=== PATIENT | female | born 1970 | race American Indian/Alaskan Native ===

== ENCOUNTER 2019-01-11 09:18 | Day surgery (SDC) | payer OTHER ==
[2018-12-30 11:41] VITALS: BMI 30.2
[2019-01-11] MEDS ORDERED: ceFAZolin 1 gm in NS 2 GM/200 ML BAG IVPB ONE (10:48)
[2019-01-11] MEDS ORDERED: Lidocaine/Epinephrine 1% 1:100000 10 ML IJ ONE (10:48)
[2019-01-11] MEDS ORDERED: Bupivacaine 0.25% 20 ML INJ IJ ONE (10:48)
[2019-01-11] MEDS ORDERED: Propofol 10 mg/ml Inj (20 ML) ONE (11:55)
[2019-01-11] MEDS ORDERED: Midazolam 2 MG/2 ML VIAL ONE (11:55)
[2019-01-11] MEDS: Bupivacaine Liposomal Inj 20 ml INFIL ONE ×2 (12:19→13:05)
[2019-01-11] MEDS: Sodium Chloride 0.9% 40 ML IV ONE ×2 (12:28→13:05)
[2019-01-11] MEDS ORDERED: Neostigmine 1:1000 (1 mg/ml) Inj ONE (13:06)
[2019-01-11] MEDS ORDERED: Dexamethasone 4 mg/1 ml IVP PRN (13:29)
[2019-01-11] MEDS ORDERED: HYDROmorphone 0.5 mg/0.5 ml ISec IVP PRN (13:29)
[2019-01-11] MEDS ORDERED: Lactated Ringer's 1,000 ML IV SCH (13:30)
--- NOTE | 2019-01-11 13:45 | PCM.SURG1 ---
Surgeon's Initial Post Op Note - Surgeon's Notes Surgeon: MD Kenia Tipple Tender: Vickie PGY3. [facility] Director Pre-Operative Diagnosis: Gallbladder polyp Operative Findings: Gallbladder Post-Operative Diagnosis: Gallbladder polyp Operation Performed: Laparoscopic assisted robotic cholecystectomy, lysis of adhesions, TAP block Specimen/Specimens Removed: Gallbladder Estimated Blood Loss: EBL {In ML}: 5 Date of Surgery/Procedure: 01/11/19 Time of Surgery/Procedure: 12:00
[2019-01-11 14:12] VITALS: TEMP 98
[2019-01-11 15:32] VITALS: O2SAT 98
[2019-01-11 16:03] VITALS: PULSE 84; RESP 17
[2019-01-11 16:09] VITALS: BP 135/67
--- NOTE | 2019-01-12 06:53 | OP ---
PROCEDURE DATE: 01/11/2019 PREOPERATIVE DIAGNOSES: 1. Gallbladder polyp. 2. Abdominal pain. POSTOPERATIVE DIAGNOSIS: . PROCEDURES DONE: 1. Robotic cholecystectomy. 2. Laparoscopic bilateral TAP block placement. SURGEON: Marvin Aquino MD ASSISTANTS: DIRK Oshea and Bebeto Johnston DO TYPE OF ANESTHESIA: General endotracheal tube anesthesia. ESTIMATED BLOOD LOSS: Around 10 mL. DRAINS: None. PATHOLOGY: Gallbladder was sent to the pathology. INTRAOPERATIVE FINDINGS: The patient had some changes of chronic cholecystitis and the patient also had a possible gallbladder polyp. DESCRIPTION OF PROCEDURE: On intraoperative steps, this is a 48-year-old female who was diagnosed with gallbladder polyp and the patient was consented for the robotic cholecystectomy, possible open, brought to the OR, placed supine on the operating table. After induction of the anesthesia, the abdomen was prepped and draped in the usual sterile fashion. A supraumbilical transverse incision was made. Using the open technique, peritoneal cavity was entered. Pneumo was created. Another 3-mm port was placed in the upper abdomen. Robot was brought in. Camera arm as well as arm 1 and arm 2 was docked. The third procedure is robotic extensive lysis of adhesion. The patient found to have extensive omental adhesion in the midline due to the previous operation and lysis of adhesion of the peritoneal attachment was done. It was done after completion of the gallbladder procedure and now the gallbladder was detected cranially. Calot's triangle dissection was done. The cystic duct and cystic artery were identified. An intraoperative BioPlug was used. Top-down approach was done and cystic duct and cystic artery were clipped at three places and cut in between two clips nearby gallbladder and the gallbladder was dissected free from the gallbladder fossa, taken in an EndoCatch bag, taken out through the umbilical port site and then sent off the table for the pathology. There was a proper hemostasis each and every part of the procedure and the gallbladder was taken out in the EndoCatch bag through the umbilical port site and sent off the table for the pathology. The patient has extensive peritoneal adhesion and omental adhesion surrounding the umbilical area and the robot was redocked on the right side and the lysis of adhesion was done to complete adhesiolysis and after that a laparoscopic bilateral TAP block was given. The 30-30 mL of Marcaine was injected in the transverse abdominal muscle plain area and after proper TAP block, all the ports were taken out under vision. Pneumo was deflated. The umbilical port site was closed in two layers; the fascia with 3-0 Vicryl interrupted sutures, skin with 4-0 Monocryl, and dry sterile dressing was applied. The patient tolerated the procedure well. Counts of instrument and gauze was correct. There were no apparent complications. The patient was extubated in the OR and sent to the postanesthesia care unit in stable condition. Marvin Aquino MD
== END 2019-01-11 17:58 | disposition home or self-care (01) ==
LOC: C.SDS 09:18
PROVIDERS: ATTEND Surgery Surgical Critical Care
DX: K81.0 Acute cholecystitis (principal)
CPT/HCPCS: 47562; 64488; 88304; J0690; J1100; J1170; J2250; J2405; J2704; J2710; J3010; J7030